=== PATIENT | female | born 1955 | race Two or more races ===

== ENCOUNTER 2022-06-13 15:27 | Emergency (ER) | payer BC ==
[~2022-06-13] VITALS: Ht 160 cm; Wt 62.6 kg
== END 2022-06-13 21:44 | disposition home or self-care (01) ==
LOC: ER 15:27
DX: J45.909 Unspecified asthma, uncomplicated (principal); R07.89 Other chest pain; Z88.2 Allergy status to sulfonamides

== ENCOUNTER 2022-08-06 19:58 | Emergency (ER) | payer OTHER | END 2022-08-06 22:29 | disposition home or self-care (01) | LOC: ER 19:58 | DX: J45.909 Unspecified asthma, uncomplicated (principal); Z88.6 Allergy status to analgesic agent ==

== ENCOUNTER 2022-08-18 11:50 | Emergency (ER) | payer OTHER ==
[~2022-08-18] VITALS: Ht 157.5 cm; Wt 63.5 kg
[2022-08-18] MEDS ORDERED: CARISOPRODOL350 MG PO (12:05)
== END 2022-08-18 21:36 | disposition home or self-care (01) ==
LOC: ER 11:50
DX: R07.89 Other chest pain (principal); M79.7 Fibromyalgia; K50.90 Crohn's disease, unspecified, without complications; Z88.2 Allergy status to sulfonamides; Z88.5 Allergy status to narcotic agent

== ENCOUNTER 2024-10-17 12:04 | Outpatient (CLI) | payer OTHER ==
[~2024-10-17 12:04] MED LIST: CARISOPRODOL350 MG PO; NORFLEX100MG PO; PHENAGIL TABLE1 EACH PO; ZYNCOF 20-400120 ML PO
== END 2024-10-17 12:10 | disposition home or self-care (01) ==
LOC: SONOGRAMA 12:04
PROVIDERS: ATTEND Internal Medicine
DX: E03.9 Hypothyroidism, unspecified (principal)